=== PATIENT | female | born 1935 | race Caucasian/White ===

== ENCOUNTER 2017-04-07 17:37 | Inpatient (IN) | payer OTHER ==
[~2017-04-07] VITALS: Ht 144.8 cm; Wt 63.8 kg
[~2017-04-07 17:37] MED LIST: ADULT ASPIRIN R81 MG PO; ADVAIR 500/501 DISK IH; DIOVAN160 MG PO; EFFEXOR XR75 MG PO; FISH OIL 1,2001 EAC4 PO; HYDROCHLOROTH12.5 M3 PO; HYDROCHLOROTHIA25 MG PO; METFORMIN HCL500 M1 PO; METFORMIN HCL500 M4 PO; MIRAPEX1 MG PO; OMEPRAZOLE40 M1 PO; POTASSIUM CHLO10 ME3 PO; PRESERVISION T1 EACH PO; RESTASIS MULTI5.5 ML BOTH EYES; VITAMIN D31000 UNIT PO
[2017-04-07 18:12] LABS: HEMATOCRIT 41.5 % (36.0-46.0); HEMOGLOBIN 14.7 G/DL (11.9-15.5); MCH 30.3 PG (29.0-34.0); MCHC 35.4 G/DL (30.0-36.0); MCV 85.6 FL (83-99); PLATELET COUNT 235 K/uL (156-360); RBC DIS.WIDTH-CV 12.4 % (11.8-14.6); RBC DIS.WIDTH-SD 38.4 % (39-53); RED BLOOD COUNT 4.85 M/uL (3.80-5.20); WHITE BLOOD COUNT 14.6 K/uL (4.1-10.2)
[2017-04-07 18:22] LABS: ALBUMIN 4.1 g/dL (3.2-4.8)
[2017-04-07 18:23] LABS: CHLORIDE 105 mEq/L (99-109); POTASSIUM 2.6 mEq/L (3.7-5.4); SODIUM 139 mEq/L (136-147)
[2017-04-07 18:25] LABS: GLUCOSE 148 mg/dL (70-99); TOTAL PROTEIN 7.2 g/dL (6.4-8.3)
[2017-04-07 18:27] LABS: TOTAL BILIRUBIN 0.9 mg/dL (0.0-1.0)
[2017-04-07 18:28] LABS: ALKALINE PHOSPHATASE 71 IU/L (3-129)
[2017-04-07 18:29] LABS: CREATININE 0.8 mg/dL (0.6-1.3); GFR ESTIMATE (CALCULATED) > 59 mL/min/
[2017-04-07 18:30] LABS: AST (GOT) 15 IU/L (2-34); UREA NITROGEN (BUN) 19 mg/dL (9-23)
[2017-04-07 18:32] LABS: ALT (GPT) 13 IU/L (3-49)
[2017-04-07 18:45] LABS: MAGNESIUM 1.8 mg/dL (1.3-2.7)
[2017-04-07 19:13] LABS: TROP-I INTERPRETATION NEGATIVE; TROPONIN-I 0.01 ng/mL (0.0-0.30)
[2017-04-07 22:55] VITALS: BP 107/55
[2017-04-08 01:25] LABS: C DIFF TOXIN NEGATIVE (NEGATIVE)
[2017-04-08 03:46] VITALS: BP 101/53
[2017-04-08 07:03] VITALS: BP 127/65
[2017-04-08 10:10] LABS: HEMATOCRIT 34.1 % (36.0-46.0); HEMOGLOBIN 11.7 G/DL (11.9-15.5); MCH 30.3 PG (29.0-34.0); MCHC 34.3 G/DL (30.0-36.0); MCV 88.3 FL (83-99); RBC DIS.WIDTH-CV 12.9 % (11.8-14.6); RBC DIS.WIDTH-SD 41.4 % (39-53); RED BLOOD COUNT 3.86 M/uL (3.80-5.20)
[2017-04-08 10:31] LABS: PLAT.SUFFICIENCY ADEQUATE
[2017-04-08 10:32] LABS: CHLORIDE 109 MEQ/L (99-109); CREATININE 0.7 MG/DL (0.6-1.3); GFR ESTIMATE (CALCULATED) > 59 mL/min/; GLUCOSE 101 mg/dL (70-99); MAGNESIUM 1.5 mg/dl (1.3-2.7); PLATELET COUNT 158 K/uL (156-360); POTASSIUM 2.9 MEQ/L (3.7-5.4); SODIUM 142 MEQ/L (136-147); UREA NITROGEN (BUN) 14 mg/dL (9-23)
[2017-04-08 11:00] VITALS: BP 133/71
[2017-04-08 14:58] VITALS: BP 137/74
[2017-04-08 19:50] VITALS: BP 128/60
[2017-04-08 22:51] LABS: APPEARANCE SL.HAZY ((CLEAR)); BILIRUBIN NEGATIVE; BLOOD NEGATIVE; COLOR YELLOW ((YELLOW)); GLUCOSE (STRIP) NEGATIVE; KETONES NEGATIVE; LEUKOCYTES TRACE; NITRITE NEGATIVE; PROTEIN (STRIP) NEGATIVE; SPECIFIC GRAVITY 1.014 (1.000-1.030); UROBILINOGEN 0.2 MG/DL (0.2-1.0)
[2017-04-08 22:54] LABS: BACTERIA RARE /HPF; EPITHELIAL CELLS RARE /HPF; HYALINE CASTS 0-5 /LPF; MUCUS 1+ /LPF; RED BLOOD CELLS 20-30 /HPF (0-5); UCUL ADDED? NO; WHITE BLOOD CELLS 0-5 /HPF (0-5)
[2017-04-08 23:50] VITALS: BP 171/77
[2017-04-09 03:37] VITALS: BP 174/81
[2017-04-09 06:44] LABS: HEMOGLOBIN 11.4 G/DL (11.9-15.5); MCH 29.2 PG (29.0-34.0); MCHC 32.6 G/DL (30.0-36.0); MCV 89.5 FL (83-99); PLATELET COUNT 163 K/uL (156-360); RBC DIS.WIDTH-CV 12.8 % (11.8-14.6); RED BLOOD COUNT 3.91 M/uL (3.80-5.20); WHITE BLOOD COUNT 5.4 K/uL (4.1-10.2)
[2017-04-09 07:16] LABS: CHLORIDE 109 MEQ/L (99-109); CREATININE 0.7 MG/DL (0.6-1.3); GFR ESTIMATE (CALCULATED) > 59 mL/min/; GLUCOSE 85 mg/dL (70-99); SODIUM 141 MEQ/L (136-147); UREA NITROGEN (BUN) 6 mg/dL (9-23)
[2017-04-09 07:21] LABS: MAGNESIUM 1.8 mg/dl (1.3-2.7)
[2017-04-09 08:00] VITALS: BP 140/77
[2017-04-09 11:52] VITALS: BP 166/73
[2017-04-09 15:50] VITALS: BP 148/75
[2017-04-09 19:43] VITALS: BP 142/70
[2017-04-09 23:16] VITALS: BP 141/27
[2017-04-10 03:33] VITALS: BP 129/71
[2017-04-10 07:25] LABS: CHLORIDE 106 MEQ/L (99-109); CREATININE 0.5 MG/DL (0.6-1.3); GFR ESTIMATE (CALCULATED) > 59 mL/min/; GLUCOSE 81 mg/dL (70-99); MAGNESIUM 1.9 mg/dl (1.3-2.7); POTASSIUM 3.9 MEQ/L (3.7-5.4); SODIUM 139 MEQ/L (136-147); UREA NITROGEN (BUN) 3 mg/dL (9-23)
[2017-04-10 07:40] VITALS: BP 139/69
[2017-04-10 15:47] VITALS: BP 138/68
[2017-04-10 16:48] LABS: BASOPHIL (%) 0.9 % (0-1); BASOPHIL COUNT 0.1 K/uL (0-0.1); EOSINOPHIL (%) 4.9 % (0-5); EOSINOPHIL COUNT 0.3 K/uL (0-0.3); HEMATOCRIT 36.7 % (36.0-46.0); HEMOGLOBIN 12.3 G/DL (11.9-15.5); IMMATURE GRANULOCYTE (%) 0.5 % (0.0-0.7); LYMPHOCYTE (%) 24.8 % (15-42); LYMPHOCYTE COUNT 1.4 K/uL (1.0-2.8); MCH 29.3 PG (29.0-34.0); MCHC 33.5 G/DL (30.0-36.0); MCV 87.4 FL (83-99); MONOCYTE (%) 9.7 % (3-12); MONOCYTE COUNT 0.6 K/uL (0-0.8); NEUTROPHIL (%) 59.2 % (45-76); NEUTROPHIL COUNT 3.4 K/uL (1.8-6.4); PLATELET COUNT 181 K/uL (156-360); RBC DIS.WIDTH-CV 12.6 % (11.8-14.6); RBC DIS.WIDTH-SD 40.3 % (39-53); WHITE BLOOD COUNT 5.8 K/uL (4.1-10.2)
[2017-04-10 17:20] LABS: CHLORIDE 105 MEQ/L (99-109); CREATININE 0.6 MG/DL (0.6-1.3); GFR ESTIMATE (CALCULATED) > 59 mL/min/; GLUCOSE 82 mg/dL (70-99); POTASSIUM 3.9 MEQ/L (3.7-5.4); SODIUM 138 MEQ/L (136-147); UREA NITROGEN (BUN) 4 mg/dL (9-23)
[2017-04-10 23:44] VITALS: BP 167/77
[2017-04-11 07:00] VITALS: BP 147/69
[2017-04-11] MEDS ORDERED: LEVAQUIN750 MG PO (11:02)
[2017-04-11] MEDS ORDERED: FLAGYL500 MG PO (11:04)
== END 2017-04-11 12:45 | disposition home or self-care (01) | DRG 872 ==
LOC: EME 17:37 → EDOF 20:23 → 5SOUTH 20:23 → CANRESERV 20:24 → ENRESERV 20:24 → 5SOUTH 22:30
PROVIDERS: Hospitalist; Physician Assistant; Student in an Organized Health Care Education/Training Program
DX: A41.9 Sepsis, unspecified organism (principal); A09 Infectious gastroenteritis and colitis, unspecified; E87.6 Hypokalemia; E83.42 Hypomagnesemia; E87.2 Acidosis; E87.0 Hyperosmolality and hypernatremia; R94.31 Abnormal electrocardiogram [ECG] [EKG]; K92.1 Melena; E11.9 Type 2 diabetes mellitus without complications; I10 Essential (primary) hypertension; E78.5 Hyperlipidemia, unspecified; R01.1 Cardiac murmur, unspecified; G25.81 Restless legs syndrome; F32.9 Major depressive disorder, single episode, unspecified; J45.909 Unspecified asthma, uncomplicated; G43.909 Migraine, unspecified, not intractable, without status migrainosus; E86.0 Dehydration; Z90.49 Acquired absence of other specified parts of digestive tract; Z90.710 Acquired absence of both cervix and uterus; Z79.82 Long term (current) use of aspirin; Z79.84 Long term (current) use of oral hypoglycemic drugs; Z88.0 Allergy status to penicillin; Z82.49 Family history of ischemic heart disease and other diseases of the circulatory system
CPT/HCPCS: 74177; 80048; 80048 91; 80053; 81003; 83605; 83735; 84484; 85025; 85027; 87040; 87177; 87329; 87493; 87502; 87506; 93005; 94799; 99281; 99285; C9113; J0744; J1644; J1885; J1956; J2405; J3010; J3475; J3480; J7030; J7120; S0030

== ENCOUNTER 2017-05-04 11:35 | Emergency (ER) | payer OTHER ==
[~2017-05-04] VITALS: Ht 142.2 cm; Wt 60.9 kg
[~2017-05-04 11:35] MED LIST changes: +FLAGYL500 MG PO; +LEVAQUIN750 MG PO
[2017-05-04 15:42] VITALS: BP 169/78
== END 2017-05-04 15:43 | disposition home or self-care (01) ==
LOC: EME 11:35
DX: S40.012A Contusion of left shoulder, initial encounter (principal); S00.83XA Contusion of other part of head, initial encounter; S89.91XA Unspecified injury of right lower leg, initial encounter; M25.552 Pain in left hip; W01.0XXA Fall on same level from slipping, tripping and stumbling without subsequent striking against object, initial encounter; Y92.480 Sidewalk as the place of occurrence of the external cause; J45.909 Unspecified asthma, uncomplicated; E11.9 Type 2 diabetes mellitus without complications; F32.9 Major depressive disorder, single episode, unspecified; Z79.82 Long term (current) use of aspirin; Z90.49 Acquired absence of other specified parts of digestive tract
CPT/HCPCS: 70450; 70486; 71046; 72125; 73030; 73502; 73564; 99281; 99283